=== PATIENT | female | born 1975 | race Caucasian/White ===

== ENCOUNTER → 2019-04-22 | Outpatient (REF) | payer BC | LOC: M SFHCLERA 17:34 | PROVIDERS: ATTEND Physician Assistant | DX: N39.0 Urinary tract infection, site not specified (principal) ==

== ENCOUNTER → 2020-11-11 | Outpatient (CLI) | payer BC ==
--- NOTE | 2020-11-11 16:25 | REPMRS ---
Patient History The patient states she had a clinical breast exam in 07/2020. Patient had first child at age 35. Family history of pancreatic cancer at age 68 in paternal uncle. Reductions of both breasts, 2001. No Hormone Replacement Therapy Patient states no breast complaints today. Patient has signed MRS History Sheet. Digital Woman Screen Mammo: November 11, 2020 - Exam #: [id number] Bilateral CC and MLO view(s) were taken. Technologist: Gini Sheldon, Technologist Prior study comparison: June 01, 2019, bilateral digital mammo screening bilat, performed at [facility]. April 13, 2018, bilateral digital mammo screening bilat, performed at [facility] [employer] [facility] [employer]. March 17, 2017, bilateral digital mammo screening bilat, performed at [facility] [employer] [facility]. FINDINGS: The breast tissue is almost entirely fat. The [employer] volumetric breast density category is: A. There has been no change in the appearance of the mammogram from the prior studies. There is no interval development of dominant mass, architectural distortion, or grouped microcalcification typical of malignancy. 3-D tomosynthesis shows no additional findings. Assessment: BI-RADS/ACR category 1 mammogram. Negative Mammogram. Recommendation Routine screening mammogram of both breasts in 1 year (for women over age 40). This patient's [facility] Lifetime Breast Cancer RIsk is estimated at 14.3 %. This mammogram was interpreted with the aid of an FDA-approved computer-aided dectection system. Electronically Signed By: Chuck Rodriguez MD 11/11/20 [id number]
== END ==
LOC: M WHC 14:55
PROVIDERS: ATTEND Obstetrics & Gynecology
DX: Z12.31 Encounter for screening mammogram for malignant neoplasm of breast (principal)

== ENCOUNTER → 2021-04-21 | Outpatient (REF) | payer BC | LOC: M LAB REF 16:47 | PROVIDERS: ATTEND Internal Medicine | DX: R19.7 Diarrhea, unspecified (principal) ==

== ENCOUNTER → 2021-12-29 | Outpatient (CLI) | payer BC | LOC: M WHC 08:32 | PROVIDERS: ATTEND Obstetrics & Gynecology | DX: Z12.31 Encounter for screening mammogram for malignant neoplasm of breast (principal) ==

== ENCOUNTER → 2022-10-04 | Outpatient (REF) | payer BC | LOC: M SFHCWAGY 12:57 | PROVIDERS: ATTEND Nurse Practitioner Family | DX: Z01.419 Encounter for gynecological examination (general) (routine) without abnormal findings (principal); Z77.9 Other contact with and (suspected) exposures hazardous to health ==

== ENCOUNTER 2022-12-15 10:24 | Day surgery (SDC) | payer BC ==
[~2022-12-15] VITALS: Ht 162.6 cm; Wt 96.6 kg
[~2022-12-15 10:24] MED LIST: NS 1,000 ML IV ONE; PHEN30CA21
[2022-12-15] MEDS ORDERED: propofoL 200 MG/20 ML VIAL As Ordered ONE (11:02)
[2022-12-15] MEDS ORDERED: LIDOCAINE 2% 100MG/5ML SDV (FOR ANES.) As Ordered ONE (11:02)
[2022-12-15 12:35] VITALS: BP 103/58; TEMP 97.1; O2SAT 97
== END 2022-12-15 12:43 | disposition home or self-care (01) ==
LOC: M OPP 10:24
PROVIDERS: ATTEND Internal Medicine Gastroenterology
DX: Z12.11 Encounter for screening for malignant neoplasm of colon (principal); K64.0 First degree hemorrhoids; K57.30 Diverticulosis of large intestine without perforation or abscess without bleeding; Z79.899 Other long term (current) drug therapy; Z88.5 Allergy status to narcotic agent

== ENCOUNTER → 2022-12-30 | Outpatient (CLI) | payer BC ==
[~2022-12-30] MED LIST changes: -NS 1,000 ML IV ONE
== END ==
LOC: M WHC 08:59
PROVIDERS: ATTEND Nurse Practitioner Family
DX: Z12.31 Encounter for screening mammogram for malignant neoplasm of breast (principal)

== ENCOUNTER 2023-10-22 19:15 | Emergency (ER) | payer BC ==
[~2023-10-22] VITALS: Ht 162.6 cm; Wt 104.9 kg
[2023-10-22 19:16] VITALS: BP 138/82; TEMP 97.8; O2SAT 97
[2023-10-22] MEDS ORDERED: CETI10CH PO (19:21)
[2023-10-22] MEDS ORDERED: PYRI1TAB5 PO (20:00)
[2023-10-22] MEDS ORDERED: CEFD1CAP9 PO (20:00)
[2023-10-22] MEDS: PHENAZOPYRIDINE 100 MG TAB PO ONE (20:11)
[2023-10-22] MEDS: CEFDINIR 300 MG CAP (OMNICEF) PO ONE (20:11)
== END 2023-10-22 20:42 | disposition home or self-care (01) ==
LOC: M ED 19:15
DX: N30.00 Acute cystitis without hematuria (principal); Z88.8 Allergy status to other drugs, medicaments and biological substances; Z79.2 Long term (current) use of antibiotics; Z79.899 Other long term (current) drug therapy

== ENCOUNTER → 2024-01-12 | Outpatient (CLI) | payer BC ==
[~2024-01-12] MED LIST changes: +CEFD1CAP9 PO; +CETI10CH PO; +PYRI1TAB5 PO
== END ==
LOC: M WHC 15:10
PROVIDERS: ATTEND Nurse Practitioner Family
DX: Z12.31 Encounter for screening mammogram for malignant neoplasm of breast (principal)

== ENCOUNTER → 2024-02-10 | Outpatient (REF) | payer BC ==
[2024-02-10 12:36] LABS: APPEARANCE, URINE HAZY (CLEAR); BACTERIA, URINE AUTO 1+ (NEGATIVE); BILIRUBIN, URINE AUTO NEGATIVE (NEGATIVE); BLOOD, URINE BLOOD 3+ (NEGATIVE); COLOR, URINE YELLOW (YELLOW); GLUCOSE, URINE (UA) AUTO NEGATIVE (NEGATIVE); KETONE, URINE AUTO NEGATIVE (NEGATIVE); LEUKOCYTE ESTERASE, URINE AUTO 3+ (NEGATIVE); NITRITE, URINE AUTO NEGATIVE (NEGATIVE); PROTEIN, URINE AUTO 1+ mg/dL (NEGATIVE); RBC, URINE AUTO 6 /HPF (0-3); SQUAMOUS EPITHELIAL CELL UR AU 1 /HPF (0-6); UROBILINOGEN, URINE AUTO 0.2 mg/dL (0.0-2.0); WBC, URINE AUTO 121 /HPF (0-3)
== END ==
LOC: M LAB REF 12:06
PROVIDERS: ATTEND Physician Assistant
DX: N39.0 Urinary tract infection, site not specified (principal)

== ENCOUNTER → 2024-08-06 | Outpatient (REF) | payer BC ==
[2024-08-06 13:31] LABS: APPEARANCE, URINE HAZY (CLEAR); BACTERIA, URINE AUTO NEGATIVE (NEGATIVE); BILIRUBIN, URINE AUTO NEGATIVE (NEGATIVE); BLOOD, URINE BLOOD 1+ (NEGATIVE); COLOR, URINE YELLOW (YELLOW); GLUCOSE, URINE (UA) AUTO NEGATIVE (NEGATIVE); KETONE, URINE AUTO NEGATIVE (NEGATIVE); LEUKOCYTE ESTERASE, URINE AUTO 2+ (NEGATIVE); MUCUS, URINE SMALL (NEGATIVE); NITRITE, URINE AUTO NEGATIVE (NEGATIVE); PROTEIN, URINE AUTO NEGATIVE (NEGATIVE); RBC, URINE AUTO 5 /HPF (0-3); SPECIFIC GRAVITY URINE AUTO 1.027 (1.002-1.035); SQUAMOUS EPITHELIAL CELL UR AU 2 /HPF (0-6); UROBILINOGEN, URINE AUTO 0.2 mg/dL (0.0-2.0); WBC, URINE AUTO 28 /HPF (0-3)
== END ==
LOC: M LAB REF 12:38
PROVIDERS: ATTEND Physician Assistant Medical
DX: N39.0 Urinary tract infection, site not specified (principal)

== ENCOUNTER → 2025-01-16 | Outpatient (REF) | payer BC ==
[2025-01-18 13:47] LABS: HPV APTIMA Not Detected (Not Detected)
== END ==
LOC: M PLALAB 09:05
PROVIDERS: ATTEND Advanced Practice Midwife
DX: Z12.4 Encounter for screening for malignant neoplasm of cervix (principal)
CPT/HCPCS: 87624; G0123

== ENCOUNTER → 2025-01-16 | Outpatient (CLI) | payer BC | LOC: M WHC 08:08 | PROVIDERS: ATTEND Advanced Practice Midwife | DX: Z12.31 Encounter for screening mammogram for malignant neoplasm of breast (principal) ==

== ENCOUNTER → 2025-03-12 | Outpatient (REF) | payer BC ==
[2025-03-12 13:03] LABS: IRON (FE) 148.0 UG/DL (50-170); PERCENT SATURATION 42.5 % (13.2-45.0)
== END ==
LOC: M LAB REF 12:00
PROVIDERS: ATTEND Internal Medicine
DX: R53.83 Other fatigue (principal); G25.81 Restless legs syndrome